=== PATIENT | female | born 1990 | race Caucasian/White ===

== ENCOUNTER 2016-10-26 22:04 | Emergency (ER) | payer OTHER ==
[~2016-10-26] VITALS: Ht 154.9 cm; Wt 84.0 kg
[~2016-10-26 22:04] MED LIST: ALPR2TAB3 PO; HYDR-3533 PO; IBUP800T23 PO; TRAZ100 PO; VALT500T PO; VIIB40TA PO; Z.0.BCPILL PO; ZOLO50TA PO
[2016-10-26 22:12] VITALS: BP 159/94; PULSE 104; RESP 16; TEMP 99.7; O2SAT 96
[2016-10-26] MEDS ORDERED: ONDANSETRON HCL 4 MG/2 ML VIAL IV PUSH ONE (23:15)
[2016-10-26] MEDS ORDERED: KETOROLAC TROMETHAMINE 30 MG/ML (IVP) VIAL IV PUSH ONE (23:15)
[2016-10-26] MEDS ORDERED: SODIUM CHLOR 0.9% 1000 ML INJ 1,000 ML IV ONE ×2 (23:15)
[2016-10-26] MEDS ORDERED: DEXAMETHASONE SOD PHOS 20 MG/5 ML VIAL IV PUSH ONE (23:15)
[2016-10-26] MEDS ORDERED: SPRI28TA PO (23:24)
[2016-10-26] MEDS ORDERED: ALPR2TAB3 PO (23:24)
[2016-10-26] MEDS ORDERED: TRAZ100T4 PO (23:24)
[2016-10-26] MEDS ORDERED: SERT-129 PO (23:24)
[2016-10-26] MEDS ORDERED: VALT500T PO (23:24)
[2016-10-26] MEDS ORDERED: TRIL150T PO (23:24)
--- NOTE | 2016-10-26 23:26 | PD ---
HPI Chief Complaint: Cold / Flu Symptoms Time Seen by Provider: 23:06 Travel History International Travel<30 days: No Contact w/Intl Traveler<30days: No Traveled to known affect area: No History of Present Illness HPI Patient is a 26 year old female who presents to ER with c/o of not feeling well for the past 2 days. Patient reports that she has had subjective fever/chills, headache, sinus pain, reports nonproductive cough, nausea and vomiting with no abdominal pain and myalgia's for the past 2 days. Reports no sick contacts at home, no recent travels/trips. Reports that she went to the urgent care center today and was diagnosed with sinusitis and was sent home with prescriptions and reports "i think that they are wrong and i have the flu." Patient did not have the flu vaccine this year. Reports "i just feel miserable and achy all over." PFSH Past Medical History Anxiety: Yes Depression: Yes Diabetes: No Diminished Hearing: No GERD: Yes Psychiatric: Yes Tetanus Vaccination: Unknown Influenza Vaccination: No ?: Not LMP: 09/24/16 : 0 Para: 0 Miscarriage: 0 : 0 Past Surgical History Surgical History: No Previous Surgery Social History Alcohol Use: Yes (DRINKS SOCIALLY) Tobacco Use: No Substance Use: Yes (MARIJUANA) Allergies-Medications (Allergen,Severity, Reaction): Coded Allergies: No Known Allergies (Verified , 10/26/16) Reported Meds & Prescriptions Reported Meds & Active Scripts Active Reported Sprintec 28 (Norgestimate-Ethinyl Estradiol) 0.25-35 mg-Mcg Tab 1 Tab PO DAILY Valtrex (Valacyclovir HCl) 500 Mg Tab 500 Mg PO DAILY Trazodone (Trazodone HCl) 100 Mg Tab 100 Mg PO HS Alprazolam 2 Mg Tab 2 Mg PO Q6H PRN Trileptal (Oxcarbazepine) 150 Mg Tab 150 Mg PO DAILY Sertraline (Sertraline HCl) 100 Mg Tab 100 Mg PO DAILY Review of Systems General / Constitutional: Positive: Fever, Chills Eyes: No: Visual changes HENT: Positive: Headaches, No: Neck Pain Cardiovascular: No: Chest Pain or Discomfort Respiratory: Positive: Cough, No: Shortness of Breath Gastrointestinal: Positive: Nausea, Vomiting, No: Abdominal Pain Genitourinary: No: Urgency, Frequency, Dysuria Musculoskeletal: No: Pain Skin: No Rash Neurologic: No: Weakness Psychiatric: No: Depression Endocrine: No: Polydipsia Hematologic/Lymphatic: No: Easy Bruising Physical Exam Narrative GENERAL: mild distress SKIN: Focused skin assessment warm/dry. HEAD: Atraumatic. Normocephalic. EYES: Pupils equal and round. No scleral icterus. No injection or drainage. ENT: No nasal bleeding or discharge. Mucous membranes pink and moist. NECK: Trachea midline. No JVD. No meningeal signs, negative kernig's or brudinski's sign CARDIOVASCULAR: Regular rate and rhythm. No murmur appreciated. RESPIRATORY: No accessory muscle use. Clear to auscultation. Breath sounds equal bilaterally. GASTROINTESTINAL: Abdomen soft, non-tender, nondistended. Hepatic and splenic margins not palpable. MUSCULOSKELETAL: No obvious deformities. No clubbing. No cyanosis. No edema. NEUROLOGICAL: Awake and alert. No obvious cranial nerve deficits. Motor grossly within normal limits. Normal speech. PSYCHIATRIC: Appropriate mood and affect; insight and judgment normal. Data Data Last Documented VS Vital Signs Date Time Temp Pulse Resp B/P Pulse Ox O2 Delivery O2 Flow Rate FiO2 10/26/16 22:12 99.7 104 16 159/94 96 Room Air Orders Complete Blood Count With Diff (10/26/16 23:11) Comprehensive Metabolic Panel (10/26/16 23:11) Influenzae A/B Antigen (10/26/16 23:11) Urinalysis - C+S If Indicated (10/26/16 23:11) Chest, Single Ap (10/26/16 23:11) Iv Access Insert/Monitor (10/26/16 23:11) Oximetry (10/26/16 23:11) Sodium Chlor 0.9% 1000 Ml Inj (Ns 1000 M (10/26/16 23:15) Sodium Chlor 0.9% 1000 Ml Inj (Ns 1000 M (10/26/16 23:15) Ondansetron Inj (Zofran Inj) (10/26/16 23:15) Ketorolac Inj (Toradol Inj) (10/26/16 23:15) Dexamethasone Inj (Decadron Inj) (10/26/16 23:15) Ed Urine Pregnancytest Poc (10/26/16 23:11) Ondansetron Inj (Zofran Inj) (10/27/16 00:45) Labs Laboratory Tests Test 10/26/16 10/26/16 23:30 23:35 Urine Color YELLOW Urine Turbidity CLEAR Urine pH 6.0 Urine Specific [place] 1.031 Urine Protein 30 mg/dL Urine Glucose (UA) NEG mg/dL Urine Ketones TRACE mg/dL Urine Occult Blood NEG Urine Nitrite NEG Urine Bilirubin NEG Urine Urobilinogen LESS THAN 2.0 MG/DL Urine Leukocyte Esterase NEG Urine RBC LESS THAN 1 /hpf Urine WBC 2 /hpf Urine Squamous Epithelial 3 /hpf Cells Microscopic Urinalysis Comment CULT NOT INDICATED White Blood Count 2.8 TH/MM3 Red Blood Count 4.23 MIL/MM3 Hemoglobin 12.6 GM/DL Hematocrit 36.6 % Mean Corpuscular Volume 86.5 FL Mean Corpuscular Hemoglobin 29.8 PG Mean Corpuscular Hemoglobin 34.4 % Concent Red Cell Distribution Width 13.3 % Platelet Count 113 TH/MM3 Mean Platelet Volume 9.4 FL Neutrophils (%) (Auto) 84.4 % Lymphocytes (%) (Auto) 9.6 % Monocytes (%) (Auto) 5.6 % Eosinophils (%) (Auto) 0.1 % Basophils (%) (Auto) 0.3 % Neutrophils # (Auto) 2.4 TH/MM3 Lymphocytes # (Auto) 0.3 TH/MM3 Monocytes # (Auto) 0.2 TH/MM3 Eosinophils # (Auto) 0.0 TH/MM3 Basophils # (Auto) 0.0 TH/MM3 CBC Comment DIFF FINAL Differential Comment Sodium Level 125 MEQ/L Potassium Level 3.3 MEQ/L Chloride Level 91 MEQ/L Carbon Dioxide Level 26.5 MEQ/L Anion Gap 8 MEQ/L Blood Urea Nitrogen 3 MG/DL Creatinine 0.54 MG/DL Estimat Glomerular Filtration 136 ML/MIN Rate Random Glucose 90 MG/DL Calcium Level 8.1 MG/DL Total Bilirubin 0.3 MG/DL Aspartate Amino Transf 33 U/L (AST/SGOT) Alanine Aminotransferase 25 U/L (ALT/SGPT) Alkaline Phosphatase 48 U/L Total Protein 7.1 GM/DL Albumin 3.6 GM/DL MDM Medical Decision Making Medical Screen Exam Complete: Yes Emergency Medical Condition: Yes Interpretation(s) Vital Signs Date Time Temp Pulse Resp B/P Pulse Ox O2 Delivery O2 Flow Rate FiO2 10/26/16 22:12 99.7 104 16 159/94 96 Room Air Differential Diagnosis Influenza, pneumonia, sinusitis, viral syndrome, meningitis though unlikely, gastroenteritis Narrative Course Patient is a 26-year-old female who presents to emergency room for evaluation of not feeling well. Patient reports that she is feeling sick and has pain all over her body. Reports headache/sinus pain, cough, n/v. Patient reports that she feels achy all over her body. Patient is nontoxic and evaluation, she is crying as she is upset. Plan to obtain lab work including x-ray chest and will check for influenza. Will give IV fluids and antiemetics. Laboratory Tests Test 10/26/16 10/26/16 23:30 23:35 Urine Color YELLOW (YELLW/STRAW) Urine Turbidity CLEAR (CLEAR) Urine pH 6.0 (5.0-8.5) Urine Specific [place] 1.031 (1.002-1.035) Urine Protein 30 mg/dL (NEG-TRACE) Urine Glucose (UA) NEG mg/dL (NEG) Urine Ketones TRACE mg/dL (NEG) Urine Occult Blood NEG (NEG) Urine Nitrite NEG (NEG) Urine Bilirubin NEG (NEG) Urine Urobilinogen LESS THAN 2.0 MG/DL (LESS THAN 2.0) Urine Leukocyte Esterase NEG (NEG) Urine RBC LESS THAN 1 /hpf (0-3) Urine WBC 2 /hpf (0-5) Urine Squamous Epithelial 3 /hpf (0-5) Cells Microscopic Urinalysis Comment CULT NOT INDICATED White Blood Count 2.8 TH/MM3 (4.0-11.0) Red Blood Count 4.23 MIL/MM3 (4.00-5.30) Hemoglobin 12.6 GM/DL (11.6-15.3) Hematocrit 36.6 % (35.0-46.0) Mean Corpuscular Volume 86.5 FL (80.0-100.0) Mean Corpuscular Hemoglobin 29.8 PG (27.0-34.0) Mean Corpuscular Hemoglobin 34.4 % Concent (32.0-36.0) Red Cell Distribution Width 13.3 % (11.6-17.2) Platelet Count 113 TH/MM3 (150-450) Mean Platelet Volume 9.4 FL (7.0-11.0) Neutrophils (%) (Auto) 84.4 % (16.0-70.0) Lymphocytes (%) (Auto) 9.6 % (9.0-44.0) Monocytes (%) (Auto) 5.6 % (0.0-8.0) Eosinophils (%) (Auto) 0.1 % (0.0-4.0) Basophils (%) (Auto) 0.3 % (0.0-2.0) Neutrophils # (Auto) 2.4 TH/MM3 (1.8-7.7) Lymphocytes # (Auto) 0.3 TH/MM3 (1.0-4.8) Monocytes # (Auto) 0.2 TH/MM3 (0-0.9) Eosinophils # (Auto) 0.0 TH/MM3 (0-0.4) Basophils # (Auto) 0.0 TH/MM3 (0-0.2) CBC Comment DIFF FINAL Differential Comment Sodium Level 125 MEQ/L (136-145) Potassium Level 3.3 MEQ/L (3.5-5.1) Chloride Level 91 MEQ/L (98-107) Carbon Dioxide Level 26.5 MEQ/L (21.0-32.0) Anion Gap 8 MEQ/L (5-15) Blood Urea Nitrogen 3 MG/DL (7-18) Creatinine 0.54 MG/DL (0.50-1.00) Estimat Glomerular Filtration 136 ML/MIN Rate (>89) Random Glucose 90 MG/DL (74-106) Calcium Level 8.1 MG/DL (8.5-10.1) Total Bilirubin 0.3 MG/DL (0.2-1.0) Aspartate Amino Transf 33 U/L (15-37) (AST/SGOT) Alanine Aminotransferase 25 U/L (10-53) (ALT/SGPT) Alkaline Phosphatase 48 U/L (45-117) Total Protein 7.1 GM/DL (6.4-8.2) Albumin 3.6 GM/DL (3.4-5.0) Microbiology Date/Time Procedure Status Source Growth 10/26/16 23:45 Influenza Types A,B Antigen (PATY) - Final Complete Nasal Washing Positive For Flu B Antigen Last Impressions Chest X-Ray 10/26/16 9404 Signed Impressions: Service Date/Time: October 23:46 - CONCLUSION: No acute disease. Julito Hill MD Patient with influenza B, patient also with hyponatremia. Patient received 2 L of fluid while in the emergency room. She does not wish to be admitted to the hospital for treatment of influenza with hyponatremia. Patient wishes to be discharged to home, she will return to ER if symptoms worsen or progress. Patient will follow up with her primary care doctor and will return to ER as needed. Patient thankful for care Diagnosis Primary Impression: Influenza B Additional Impression: Hyponatremia Patient Instructions: General Instructions Departure Forms: Tests/Procedures, Work Release Enter return to work date: November 01, 2016 Additional Instructions: Please follow up with your primary care doctor in 2-3 days Returns to emergency room as needed Return to the emergency room if symptoms worsen or progress Please drink plenty of fluids Please take motrin or acetaminophen for fever Med/Other Pt SpecificInfo: Prescription(s) given Scripts Ondansetron Odt (Zofran Odt)4 Mg Tab4 Mg SL Q6HR PRN (Nausea/Vomiting) #30 TAB Ref 0 Prov:Terri Luna DO 10/27/16 Disposition: 01 DISCHARGE HOME Condition: Stable Terri Luna DO October 26, 2016 23:26
[2016-10-26 23:40] VITALS: RESP 16; O2SAT 96
[2016-10-27] LABS: AUTOMATED NEUTROPHIL # 2.4 TH/MM3 (1.8-7.7); BASOPHIL % 0.3 % (0.0-2.0); EOSINOPHIL % 0.1 % (0.0-4.0); HEMATOCRIT 36.6 % (35.0-46.0); HEMO FLAGS DIFF FINAL; LYMPH % 9.6 % (9.0-44.0); LYMPHOCYTE # 0.3 TH/MM3 (1.0-4.8); MEAN CELL VOLUME 86.5 FL (80.0-100.0); MEAN CORPUSCULAR HEMOGLOBIN 29.8 PG (27.0-34.0); MEAN CORPUSCULAR HGB CONC 34.4 % (32.0-36.0); MONO % 5.6 % (0.0-8.0); NEUT % 84.4 % (16.0-70.0); PLATELET COUNT 113 TH/MM3 (150-450); RED BLOOD COUNT 4.23 MIL/MM3 (4.00-5.30); RED CELL DISTRIBUTION WIDTH 13.3 % (11.6-17.2); WHITE BLOOD COUNT 2.8 TH/MM3 (4.0-11.0)
[2016-10-27 00:06] LABS: BLOOD, URINE NEG (NEG); COMMENT (UR) CULT NOT INDICATED; CULTURE IF INDICATED CULT NOT INDICATED; GLUCOSE,URINE NEG (NEG); KETONE, URINE TRACE mg/dL (NEG); NITRITE,URINE NEG (NEG); SQUAMOUS EPITHELIAL CELL URINE 3 /hpf (0-5); URINE COLOR YELLOW (YELLW/STRAW)
--- NOTE | 2016-10-27 00:18 | RADRPT ---
EXAM DATE/TIME: 10/26/2016 23:46 [facility] COMPARISON: No previous studies available for comparison. INDICATIONS : Cough. MEDICAL HISTORY : None. SURGICAL HISTORY : None. ENCOUNTER: Initial ACUITY: 2 days PAIN SCORE: 0/10 LOCATION: Bilateral chest FINDINGS: A single view of the chest demonstrates the lungs to be symmetrically aerated without evidence of mas s, infiltrate or effusion. The cardiomediastinal contours are unremarkable. Osseous structures are intact. CONCLUSION: No acute disease. Julito Hill MD on October 27, 2016 at 0:16 Board Certified Radiologist. This report was verified electronically.
[2016-10-27 00:20] LABS: ALT (GPT) 25 U/L (10-53); ANION GAP 8 MEQ/L (5-15); AST (GOT) 33 U/L (15-37); BICARBONATE 26.5 MEQ/L (21.0-32.0); BLOOD UREA NITROGEN 3 MG/DL (7-18); CHLORIDE 91 MEQ/L (98-107); GLOMERULAR FILTRATION RATE 136 ML/MIN (>89); POTASSIUM 3.3 MEQ/L (3.5-5.1); SODIUM (NA) 125 MEQ/L (136-145)
[2016-10-27 00:22] LABS: ALKALINE PHOSPHATASE 48 U/L (45-117); TOTAL BILIRUBIN ADULT 0.3 MG/DL (0.2-1.0)
[2016-10-27] MEDS ORDERED: ZOFR4TAB3 SL (00:34)
[2016-10-27] MEDS ORDERED: ONDANSETRON HCL 4 MG/2 ML VIAL IV PUSH ONE (00:45)
== END 2016-10-27 01:50 | disposition home or self-care (01) ==
LOC: NEPD 22:04
DX: J10.1 Influenza due to other identified influenza virus with other respiratory manifestations (principal); E87.1 Hypo-osmolality and hyponatremia; F12.90 Cannabis use, unspecified, uncomplicated
CPT/HCPCS: 71010; 80053; 81001; 84703; 85025; 87804; 96374; 96375; 96376; 99284; J1100; J1885; J2405; J7030

== ENCOUNTER 2016-12-09 17:10 | Emergency (ER) | payer OTHER ==
[~2016-12-09] VITALS: Ht 154.9 cm; Wt 79.0 kg
[~2016-12-09 17:10] MED LIST changes: -HYDR-3533 PO; -IBUP800T23 PO; +SERT-129 PO; +SPRI28TA PO; -TRAZ100 PO; +TRAZ100T4 PO; +TRIL150T PO; -VIIB40TA PO; -Z.0.BCPILL PO; +ZOFR4TAB3 SL; -ZOLO50TA PO
[2016-12-09 17:12] VITALS: BP 141/73; PULSE 81; RESP 14; TEMP 97.8; O2SAT 99
--- NOTE | 2016-12-09 17:20 | PD ---
HPI Chief Complaint: Injury Time Seen by Provider: 17:19 Travel History International Travel<30 days: No Contact w/Intl Traveler<30days: No Traveled to known affect area: No History of Present Illness HPI 26 YO F with complaint of right knee pain. Onset 5 days ago after the patient fell from a stool directly onto the knee. She has been ambulatory since the accident. She states that it bruised almost immediately. She states that she treated with compression, ice and elevation but the pain was "unbearable" while at work today. She denies numbness, tingling, weakness of the extremity. She is standing up while she reports the history of present illness. Patient also states that she was hyponatremic and May when she was here for the flu. She is concerned she may be hyponatremic as she thinks it was secondary to her psychiatric medications. PFSH Past Medical History Anxiety: Yes Depression: Yes Diabetes: No Diminished Hearing: No GERD: Yes Psychiatric: Yes ?: Not : 0 Para: 0 Miscarriage: 0 : 0 Social History Alcohol Use: Yes (DRINKS SOCIALLY) Tobacco Use: No Substance Use: Yes (MARIJUANA) Allergies-Medications (Allergen,Severity, Reaction): Coded Allergies: No Known Allergies (Verified , 10/26/16) Reported Meds & Prescriptions Reported Meds & Active Scripts Active Ibuprofen 800 Mg Tab 800 Mg PO Q8H Zofran Odt (Ondansetron Odt) 4 Mg Tab 4 Mg SL Q6HR PRN Reported Sprintec 28 (Norgestimate-Ethinyl Estradiol) 0.25-35 mg-Mcg Tab 1 Tab PO DAILY Valtrex (Valacyclovir HCl) 500 Mg Tab 500 Mg PO DAILY Trazodone (Trazodone HCl) 100 Mg Tab 100 Mg PO HS Alprazolam 2 Mg Tab 2 Mg PO Q6H PRN Trileptal (Oxcarbazepine) 150 Mg Tab 150 Mg PO DAILY Sertraline (Sertraline HCl) 100 Mg Tab 100 Mg PO DAILY Review of Systems Except as stated in HPI: all other systems reviewed are Neg Physical Exam Narrative GENERAL: Well-nourished, well-developed white female in no acute distress. SKIN: Focused skin assessment warm/dry. Multiple tattoos. Old ecchymosis over the medial aspect of the right knee. HEAD: Normocephalic. EYES: No scleral icterus. No injection or drainage. NECK: Supple, trachea midline. No JVD or lymphadenopathy. CARDIOVASCULAR: Regular rate and rhythm without murmurs, gallops, or rubs. RESPIRATORY: Breath sounds equal bilaterally. No accessory muscle use. GASTROINTESTINAL: Abdomen soft, non-tender, nondistended. MUSCULOSKELETAL: No cyanosis, or edema. FOCUSED RIGHT LOWER EXTREMITY EXAM: 2+ DP pulse. No patellar balloting. No anterior tenderness to palpation. No tenderness to palpation of the joint line. Patient is able to extend beyond 0 and flex beyond 90. No popliteal tenderness. Neurovascularly intact. BACK: Nontender without obvious deformity. No CVA tenderness. Data Data Last Documented VS Vital Signs Date Time Temp Pulse Resp B/P Pulse Ox O2 Delivery O2 Flow Rate FiO2 12/09/16 17:12 97.8 81 14 141/73 99 Orders Knee, Complete (4vws) (12/09/16 17:20) Ice/Cold Pack (12/09/16 17:20) Ed Urine Pregnancytest Poc (12/09/16 17:20) Basic Metabolic Panel (Bmp) (12/09/16 17:43) Ketorolac Inj (Toradol Inj) (12/09/16 18:00) Labs Laboratory Tests Test 12/09/16 17:50 Sodium Level 137 MEQ/L Potassium Level 4.6 MEQ/L Chloride Level 106 MEQ/L Carbon Dioxide Level 21.4 MEQ/L Anion Gap 10 MEQ/L Blood Urea Nitrogen 11 MG/DL Creatinine 0.69 MG/DL Estimat Glomerular Filtration 103 ML/MIN Rate Random Glucose 91 MG/DL Calcium Level 8.7 MG/DL [facility] Medical Decision Making Medical Screen Exam Complete: Yes Emergency Medical Condition: Yes Differential Diagnosis Musculoskeletal pain versus contusion versus traumatic bursitis versus fracture versus dislocation versus other Narrative Course 26 YO F with complaint of right knee pain. Onset 5 days ago after the patient fell from a stool directly onto the knee. She has been ambulatory since the accident. Denies numbness, tingling, weakness of the extremity. She is standing up while she reports the history of present illness. Patient also states that she was hyponatremic in October when she was here for the flu. She is concerned she may be hyponatremic as she thinks it was secondary to her psychiatric medications. Vitals reviewed. Physical exam reveals bruising of the knee but no limitations to ROM. Ice pack was applied. Patient was administered IM Toradol. X-ray reveals no acute bony injury. BMP within normal limits. This is right knee pain/contusion. Patient is instructed to rest, ice, elevate, compress the extremity, take anti-inflammatories as prescribed, return to normal, gentle activity as tolerated, follow up with the primary care provider. She indicated understanding of the instructions and is agreeable to the care plan. She is stable and discharged home. Diagnosis Primary Impression: Right knee pain Qualified Code: M25.561 - Acute pain of right knee Referrals: Primary Care Physician Patient Instructions: Contusion in Adults (ED), General Instructions Additional Instructions: Rest, ice, compress, elevate the extremity. Apply ice no longer than 10-15 minutes per hour a few times a day. 800 mg ibuprofen up to 3 times to reduce pain and inflammation Return to normal, gentle activity as tolerated. No running, jumping activities for the next few weeks. Follow up with orthopedist or your primary care provider. Return to the ED for any urgent or emergent medical condition. Med/Other Pt SpecificInfo: Prescription(s) given Scripts Ibuprofen 800 Mg [id number] Mg PO Q8H #15 TAB Ref 0 Prov:Carina Page MD 12/09/16 Disposition: 01 DISCHARGE HOME Condition: Stable Radha Portillo Dec 09, 2016 17:20
--- NOTE | 2016-12-09 17:48 | RADRPT ---
EXAM DATE/TIME: 12/09/2016 17:31 [facility] COMPARISON: No previous studies available for comparison. INDICATIONS : Right knee pain and bruising. Patient fell on tile five days ago. MEDICAL HISTORY : None. SURGICAL HISTORY : None. ENCOUNTER: Initial ACUITY: 4 - 6 days PAIN SCORE: 10/10 LOCATION: Right knee. FINDINGS: Four view examination of the right knee demonstrates no evidence of fracture or dislocation. Bony mi neralization is normal. The articular surfaces are intact. The suprapatellar soft tissues have a no rmal configuration. CONCLUSION: Unremarkable examination of the right knee. Kilo Latif MD on December 09, 2016 at 17:46 Board Certified Radiologist. This report was verified electronically.
[2016-12-09] MEDS ORDERED: KETOROLAC TROMETHAMINE 60 MG/2 ML (IM) VIAL IM ONE (18:00)
[2016-12-09] MEDS ORDERED: IBUP800T23 PO (18:04)
[2016-12-09 18:48] LABS: BICARBONATE 21.4 MEQ/L (21.0-32.0); POTASSIUM 4.6 MEQ/L (3.5-5.1)
== END 2016-12-09 19:20 | disposition home or self-care (01) ==
LOC: NEPD 17:10
DX: M25.561 Pain in right knee (principal); F41.9 Anxiety disorder, unspecified; F32.9 Major depressive disorder, single episode, unspecified; K21.9 Gastro-esophageal reflux disease without esophagitis; Z79.899 Other long term (current) drug therapy
CPT/HCPCS: 73564; 80048; 84703; 96372; 99284; J1885

== ENCOUNTER 2017-11-22 01:08 | Emergency (ER) | payer OTHER ==
[~2017-11-22 01:08] MED LIST changes: +IBUP1TAB7 PO
[2017-11-22 01:21] VITALS: BP 128/64; PULSE 74; RESP 14; TEMP 98.2; O2SAT 97
--- NOTE | 2017-11-22 02:37 | PD ---
HPI Chief Complaint: Laceration/Skin Injury Time Seen by Provider: 02:29 Travel History International Travel<30 days: No Contact w/Intl Traveler<30days: No Traveled to known affect area: No History of Present Illness HPI 27-year-old female with history of PTSD, body dysmorphic disorder, presents for evaluation of self-inflicted wounds on the left forearm. She reports that she was involved in a verbal argument with her boyfriend this evening and she became upset and out of frustration she cut her left forearm. She does this frequently as a way to express her frustration. She denies any desire to kill herself. Symptoms are moderate, aggravated by underlying psychiatric illnesses , no alleviating factors. Last tetanus vaccination 4 years ago. She denies any suicidal homicidal ideation, drug or alcohol use. PFSH Past Medical History Anxiety: Yes Depression: Yes Diabetes: No Diminished Hearing: No GERD: Yes Psychiatric: Yes ?: Not : 0 Para: 0 Miscarriage: 0 : 0 Social History Alcohol Use: Yes (DRINKS SOCIALLY) Tobacco Use: No Substance Use: Yes (MARIJUANA) Allergies-Medications (Allergen,Severity, Reaction): Coded Allergies: No Known Allergies (Verified , 10/26/16) Reported Meds & Prescriptions Reported Meds & Active Scripts Active Ibuprofen 800 Mg Tab 800 Mg PO Q8H Zofran Odt (Ondansetron Odt) 4 Mg Tab 4 Mg SL Q6HR PRN Reported Sprintec 28 (Norgestimate-Ethinyl Estradiol) 0.25-35 mg-Mcg Tab 1 Tab PO DAILY Valtrex (Valacyclovir HCl) 500 Mg Tab 500 Mg PO DAILY Trazodone (Trazodone HCl) 100 Mg Tab 100 Mg PO HS Alprazolam 2 Mg Tab 2 Mg PO Q6H PRN Trileptal (Oxcarbazepine) 150 Mg Tab 150 Mg PO DAILY Sertraline (Sertraline HCl) 100 Mg Tab 100 Mg PO DAILY Review of Systems Except as stated in HPI: all other systems reviewed are Neg Physical Exam Narrative GENERAL: Well-developed well-nourished female no acute distress SKIN: Warm and dry. 5 cm linear laceration on the volar aspect of left wrist. 3 cm linear laceration volar aspect left wrist. Old linear scars noted on the wrist. HEAD: Atraumatic. Normocephalic. EYES: Pupils equal and round. No scleral icterus. No injection or drainage. ENT: No nasal bleeding or discharge. Mucous membranes pink and moist. NECK: Trachea midline. No JVD. CARDIOVASCULAR: Regular rate and rhythm. No murmur appreciated. RESPIRATORY: No accessory muscle use. Clear to auscultation. Breath sounds equal bilaterally. MUSCULOSKELETAL: Skin as noted above. No evidence of tendon, bony or neurovascular injury. The patient maintains full range of motion of the left hand and wrist, full strength in all musculoskeletal compartments. Distal sensation is preserved in the median radial and ulnar 2 seconds all digits left hand. 2+ radial pulse. NEUROLOGICAL: Awake and alert. No obvious cranial nerve deficits. Motor grossly within normal limits. Normal speech. PSYCHIATRIC: Appropriate mood and affect; insight and judgment normal. Data Data Last Documented VS Vital Signs Date Time Temp Pulse Resp B/P (MAP) Pulse Ox O2 Delivery O2 Flow Rate FiO2 11/22/17 01:21 98.2 74 14 128/64 (85) 97 Orders Orders Lidocai-Epi 1%-1:100,000 Inj (Xylocaine- (11/22/17 02:45) MDM Medical Decision Making Medical Screen Exam Complete: Yes Emergency Medical Condition: Yes Medical Record Reviewed: Yes Differential Diagnosis Cutaneous laceration, flexor tendon laceration, neurovascular laceration, open fracture Narrative Course The lacerations were repaired. With sutures, she verbally consents. Patient has follow-up plan, her psychiatrist is Dr. Wade and she would prefer to follow-up with him as an outpatient for cognitive behavioral therapy and further treatment. Her boyfriend feels comfortable taking her home and does not feel that she is a threat to herself. This seems reasonable. Procedures Procedure Narrative LACERATION LOCATION: Left forearm LENGTH: 5 cm NUMBER OF STITCHES/HERIBERTO: 7 REPAIR: The area of the laceration was prepped with Betadine and sterilely draped. The laceration was infiltrated with [1% lidocaine with epinephrine. The wound was copiously irrigated and explored without evidence of foreign body , tendon injury or neurovascular injury. The wound was closed using 4-0 Prolene simple interrupted. This was a single layer repair. A sterile dressing was applied. The patient was advised to keep the dressing clean and dry. Patient tolerated the procedure well. LACERATION LOCATION: Left forearm LENGTH: 3 cm NUMBER OF STITCHES/HERIBERTO: 4 REPAIR: The area of the laceration was prepped with Betadine and sterilely draped. The laceration was infiltrated with [1% lidocaine with epinephrine. The wound was copiously irrigated and explored without evidence of foreign body , tendon injury or neurovascular injury. The wound was closed using 4-0 Prolene simple interrupted. This was a single layer repair. A sterile dressing was applied. The patient was advised to keep the dressing clean and dry. Patient tolerated the procedure well. Diagnosis Primary Impression: Laceration of left forearm Additional Impression: Laceration of forearm, left Additional Instructions: Wash the wounds gently with soap and water and apply antibiotic cream and clean bandages twice a day. Return in 10-14 days for suture removal. Med/Other Pt SpecificInfo: Wound Care Disposition: 01 DISCHARGE HOME Condition: Stable Kyle Michaels Nov 22, 2017 02:37
[2017-11-22] MEDS ORDERED: LIDOCAINE 1%/EPINEPHrine 1:100,000 SOLN 50 ML VIAL INFIL ONE (02:45)
== END 2017-11-22 03:58 | disposition home or self-care (01) ==
LOC: NEPD 01:08
DX: S51.812A Laceration without foreign body of left forearm, initial encounter (principal); F43.10 Post-traumatic stress disorder, unspecified; F45.22 Body dysmorphic disorder; F41.9 Anxiety disorder, unspecified; F32.9 Major depressive disorder, single episode, unspecified; K21.9 Gastro-esophageal reflux disease without esophagitis; F12.90 Cannabis use, unspecified, uncomplicated; X78.9XXA Intentional self-harm by unspecified sharp object, initial encounter; Z79.899 Other long term (current) drug therapy
CPT/HCPCS: 12004